=== PATIENT | male | born 1950 | race Caucasian/White ===

== ENCOUNTER 2022-04-22 13:24 | Outpatient (CLI) | payer BC, SELFPAY ==
--- NOTE | ~2022-04-22 | XR_ITS ---
XR abdomen/kub 1V DATE: 04/22/2022 13:41 INDICATION: History of kidney stone TECHNIQUE: AP projection, 2 views COMPARISON: None FINDINGS: Approximately 8.4 x 12 mm calcification overlies the right kidney. There is a small faint c alcification overlying the lower pole of the left kidney. No calcifications are noted overlying the e xpected course of the ureters. Prominent calcifications overlie the prostate gland. The psoas shadows are intact. No visceromegaly is detected. There is a prominent amount of fecal mate rial within the colon but no evidence of bowel obstruction. IMPRESSION: Suspected bilateral nephrolithiasis Prominent prostate calcifications Prominent amount of fecal material in the colon Reviewed, dictated and finalized at Location [facility]. Reviewed, dictated and finalized at location A. ETING FINANCE SPECIALIST
--- NOTE | ~2022-04-22 | CT_ITS ---
EXAMINATION: CT abdomen pelvis wo con DATE: 04/22/2022 13:47 INDICATION: History of kidney stones TECHNIQUE: Computed tomography (CT) of the abdomen and pelvis was performed without intravenous contr ast. Automated exposure control and iterative reconstruction technique were employed. Exam dose: 209 .89 mGy-cm total exam DLP. COMPARISON: None. FINDINGS: The lung bases are clear. Normal heart size. No pericardial or pleural effusion. The liver, gallbladder, bile ducts, spleen, pancreas and pancreatic duct as well as adrenal glands ar e unremarkable. No renal space-occupying mass lesion is evident on this limited noncontrast examination. Up to 7.8 x 13.5 x 9.5 mm nonobstructing lower pole right renal calculus with attenuation 1387 Hounsf ield units. Suggestion of a subtle pinpoint nonobstructing lower pole right renal calculus. Approximately 3 x 4 mm nonobstructing lower pole left renal calculus. No ureteral calculus or hydroureteronephrosis. Normal caliber of the abdominal aorta. No intraperitoneal or retroperitoneal or pelvic mass lesion or adenopathy or ascites. There is prostate enlargement and some prominent prostate calcification. There is moderate diffuse th ickening of the urinary bladder wall. Normal appendix. Mild colonic diverticulosis; no CT evidence of diverticulitis. No bowel obstruction, bowel wall thick ening, pneumatosis or intraperitoneal free air. No suspicious osteolytic or osteoblastic lesions. There is degenerative changes apophyseal joints of the lumbar spine with associated grade 1 anterolis thesis at L3-4. There is severe degenerative disc disease at L4-5 and L5-S1. IMPRESSION: Bilateral nonobstructive nephrolithiasis Normal appendix Mild colonic diverticulosis; no evidence of diverticulitis Reviewed, dictated and finalized at [facility]. Reviewed, dictated and finalized at location A. ETED SPRING ASSEMBLER
== END 2022-04-22 13:25 | disposition home or self-care (01) ==
LOC: ANHIMG 13:26
PROVIDERS: PCP Family Medicine; Visit Provider Nurse Practitioner Adult Health
DX: N20.0 Calculus of kidney (principal); K57.30 Diverticulosis of large intestine without perforation or abscess without bleeding; N40.1 Benign prostatic hyperplasia with lower urinary tract symptoms
CPT/HCPCS: 74018; 74176

== ENCOUNTER 2022-06-07 10:49 | Outpatient (CLI) | payer BC, SELFPAY ==
[2022-06-07 12:13] LABS: Partial Thromboplastin Time 27.8 SECONDS (22.3-36.8); Prothrombin Time 12.8 Seconds (11.1-14.7)
== END 2022-06-07 10:50 | disposition home or self-care (01) ==
LOC: ANHSURGERY 10:50
PROVIDERS: PCP Family Medicine; Visit Provider Urology
DX: Z01.818 Encounter for other preprocedural examination (principal); N20.0 Calculus of kidney
CPT/HCPCS: 36415; 85610; 85730; 87086

== ENCOUNTER 2022-06-10 01:12 | Day surgery (SDC) | payer BC, SELFPAY ==
--- NOTE | 2022-05-16 08:59 | PC.NURSE ---
Report to the Outpatient Waiting Room, entrance under the green pavilion located off [facility], at time __30 on date __05/27/22 . Planned Procedure Time: __929 . Time changes happen often and if your time is changed the preop area will call you the afternoon before. - You and your visitor will be asked to self-screen and do not enter if you have any COVID symptoms. - Only one visitor is requested with a max of two and NO children visitors are allowed at this time. - The patient visitor may be requested to leave or wait in car when not with patient due to distancing restrictions. - A mask is optional within the hospital. Patients may have clear liquids (water, carbonated beverages, clear teas, apple juice) until 3 hours prior to surgery with a maximum of 20 ounces. - No food from midnight until time of surgery - Infants may have breast milk until 4 hours before surgery, infant formula 6 hours prior to surgery. - Children will be allowed to drink immediately following surgery. If applicable, please bring a bottle or sippy cup to assist with drinking. Juice, water, soda, and popsicles are readily available. For infants on formula, please bring formula the day of surgery. Pacifiers are allowed. Take the following medications with a SIP of water the morning of surgery: __NONE Medications to discontinue per physician ALL VITAMINS AND SUPPLEMENTS 3 DAYS PRE OP Date to take last dose 05/23/22 Please no make-up, nail hebrew, hairspray, perfume, deodorant, or body powder the day of surgery. No jewelry (including any body piercings) or valuables the day of surgery, leave them at home. Please take a shower or bath the night before, or the morning of, surgery with an antibacterial soap. Wear comfortable, loose fitting clothing. Children are encouraged to wear pajamas. - Jewelry must be removed prior to entering the operating room. Rings and piercings that are not removed may be cut off. - The hospital will not accept responsibility for valuables. - Please leave all valuables, including medications, at home the day of surgery. If you are going home after surgery, a licensed cdl team truck driver must drive you home. - NO public transportation without another adult if you receive anesthesia. - We recommend that an adult stay with you for 24 hours following discharge. - We also recommend that you do not drive, make important decision, drink alcoholic beverages, or take any drugs that were not prescribed by your health care provider for at least 24 hours after your discharge time. Follow any additional instructions given to you from your surgeon. If you or anyone in your household have experienced Covid symptoms in the past week, please notify your surgeon or the nurse liaison at the phone number below for possible testing. Telephone instructions given to __PATIENT and asked if any additional questions and then verbalized understanding. Patient advised to call surgeon office or pre surgery nurse liaison [phone] if any additional questions.
[2022-05-16 09:10] VITALS: BMI 26.6
--- NOTE | 2022-05-22 08:11 | P.HP_ITS ---
History of Present Illness History of Present Illness Consent: Risks, benefits, and alternatives have been discussed and questions answered. Patient agrees to proceed with procedure. Chief complaint: right kidney stones Narrative: Capo Turner is a 72 year old male who, during the course of evaluation for hematuria, was found to have bilateral renal calculi. The stones are much larger on the left measuring up to 7 x 13 mm. After discussion of options he elected for right ESWL. Patient is aware of the risk including, but not limited to, adverse cardiopulmonary events, need for additional procedures, postoperative hematuria and injury to the kidney with perinephric hematoma. Review of Systems Cardiovascular: Cardiovascular: Denies chest pain, Denies lightheadedness, Denies palpitations and Denies dyspnea Respiratory: Respiratory: Denies dyspnea Gastrointestinal: Gastrointestinal: Denies diarrhea, Denies nausea and Denies vomiting Genitourinary: Genitourinary: Denies hematuria and Denies dysuria Endocrine: Endocrine: Denies palpitations PMFSH Social History Social History Smoking status: Never smoker Spiritual care concerns: No Meds Home Medications and Allergies Home Medications Medication Instructions Recorded Confirmed Type cetirizine 10 mg capsule (Zyrtec) 10 mg PO DAILY PRN Allergy Symptoms 10/29/20 05/16/22 History fluticasone propionate 50 1 spray intranasal PRN PRN Allergy 10/29/20 05/16/22 History mcg/actuation nasal Symptoms spray,suspension cholecalciferol (vitamin D3) 25 25 mcg PO DAILY 05/16/22 05/16/22 History mcg (1,000 unit) tablet ceoovlxe-ery-fwosu acid 500 1 tablet PO DAILY 05/16/22 05/16/22 History mcg-lycopene 300 mcg-lutein 250 mcg tablet omeprazole 40 mg capsule,delayed 40 mg PO BID 05/16/22 05/16/22 History release psyllium husk 3.4 gram/5.4 gram 1 tbsp PO DAILY 05/16/22 05/16/22 History oral powder (Metamucil) tamsulosin 0.4 mg capsule 0.4 mg PO HS 05/16/22 05/16/22 History Allergies Allergy/AdvReac Type Severity Reaction Status Date / Time No Known Allergies Allergy Unverified 05/16/22 08:44 Exam Const: General: no acute distress Resp: Effort & Inspection: normal respiratory effort GI: Inspection: non-distended GI Palp: No abdominal tenderness and No Guarding due to palpation present (GI) Auscultation: normal bowel sounds Assessment and Plan Assessment and plan (1) Bilateral kidney stones: Code(s): N20.0 - Calculus of kidney Status: Acute Assessment and Plan: * Right ESWL
--- NOTE | 2022-05-30 09:38 | PC.NURSE ---
Report to the Outpatient Waiting Room, entrance under the green pavilion located off [address], at time _0700 on date __06/10/22 . Planned Procedure Time: __0900 . Time changes happen often and if your time is changed the preop area will call you the afternoon before. - You and your visitor will be asked to self-screen and do not enter if you have any COVID symptoms. - Only one visitor is requested with a max of two and NO children visitors are allowed at this time. - The patient visitor may be requested to leave or wait in car when not with patient due to distancing restrictions. - A mask is optional within the hospital. Patients may have clear liquids (water, carbonated beverages, clear teas, apple juice) until 3 hours prior to surgery with a maximum of 20 ounces. - No food from midnight until time of surgery - Infants may have breast milk until 4 hours before surgery, formula 6 hours prior to surgery. - Children will be allowed to drink immediately following surgery. If applicable, please bring a bottle or sippy cup to assist with drinking. Juice, water, soda, and popsicles are readily available. For infants on formula, please bring formula the day of surgery. Pacifiers are allowed. Take the following medications with a SIP of water the morning of surgery: __NONE Medications to discontinue per physician ____ALL VITAMINS AND SUPPLEMENTS 3 DAYS PRE OP Date to take last dose___06/06/22 Please no make-up, nail armenian, hairspray, perfume, deodorant, or body powder the day of surgery. No jewelry (including any body piercings) or valuables the day of surgery, leave them at home. Please take a shower or bath the night before, or the morning of, surgery with an antibacterial soap. Wear comfortable, loose fitting clothing. Children are encouraged to wear pajamas. - Jewelry must be removed prior to entering the operating room. Rings and piercings that are not removed may be cut off. - The hospital will not accept responsibility for valuables. - Please leave all valuables, including medications, at home the day of surgery. If you are going home after surgery, a licensed mobile lounge driver or operator must drive you home. - NO public transportation without another adult if you receive anesthesia. - We recommend that an adult stay with you for 24 hours following discharge. - We also recommend that you do not drive, make important decision, drink alcoholic beverages, or take any drugs that were not prescribed by your health care provider for at least 24 hours after your discharge time. For Pediatric surgeries, we recommend two adults accompany the child home. Follow any additional instructions given to you from your surgeon. If you or anyone in your household have experienced Covid symptoms in the past week, please notify your surgeon or the nurse liaison at the phone number below for possible testing. Telephone instructions given to _PATIENT and asked if any additional questions and then verbalized understanding. Patient advised to call surgeon office or pre surgery nurse liaison [phone] if any additional questions.
--- NOTE | 2022-05-30 09:46 | PC.NURSE ---
SPOKE TO PT 05/30/22.TESTED COVID POSITIVE AGAIN 05/24/22. CONGESTION REMAINS .NO OTHER SYMPTOMS.WILL PROCEED WITH SURGERY 06/10/22.NO OTHER CHANGE IN HEALTH HX
--- NOTE | 2022-06-02 12:42 | P.HP_ITS ---
History of Present Illness History of Present Illness Consent: Risks, benefits, and alternatives have been discussed and questions answered. Patient agrees to proceed with procedure. Chief complaint: right kidney stones Narrative: Capo Turner is a 72 year old male recently underwent evaluation for microscopic hematuria. CT imaging demonstrated bilateral renal calculi, greater on the right than left. After discussion of options he elected for right ESWL. He is aware the risk including, but not limited to, adverse cardiopulmonary events, persistent stone with need for additional procedures, hematuria and perinephric hematoma. Review of Systems Cardiovascular: Cardiovascular: Denies chest pain, Denies lightheadedness, Denies palpitations and Denies dyspnea Respiratory: Respiratory: Denies dyspnea Gastrointestinal: Gastrointestinal: Denies diarrhea, Denies nausea and Denies vomiting Genitourinary: Genitourinary: Denies hematuria and Denies dysuria Endocrine: Endocrine: Denies palpitations PMFSH Social History Social History Smoking status: Never smoker Spiritual care concerns: No Meds Home Medications and Allergies Home Medications Medication Instructions Recorded Confirmed Type cetirizine 10 mg capsule (Zyrtec) 10 mg PO DAILY PRN Allergy Symptoms 10/29/20 05/30/22 History fluticasone propionate 50 1 spray intranasal PRN PRN Allergy 10/29/20 05/30/22 History mcg/actuation nasal Symptoms spray,suspension cholecalciferol (vitamin D3) 25 25 mcg PO DAILY 05/16/22 05/30/22 History mcg (1,000 unit) tablet iwsfoewc-xwb-rxdms acid 500 1 tablet PO DAILY 05/16/22 05/30/22 History mcg-lycopene 300 mcg-lutein 250 mcg tablet omeprazole 40 mg capsule,delayed 40 mg PO BID 05/16/22 05/30/22 History release psyllium husk 3.4 gram/5.4 gram 1 tbsp PO DAILY 05/16/22 05/30/22 History oral powder (Metamucil) tamsulosin 0.4 mg capsule 0.4 mg PO HS 05/16/22 05/30/22 History Allergies Allergy/AdvReac Type Severity Reaction Status Date / Time No Known Allergies Allergy Unverified 05/30/22 09:36 Exam Const: General: no acute distress Resp: Effort & Inspection: normal respiratory effort GI: Inspection: non-distended GI Palp: No abdominal tenderness and No Guarding due to palpation present (GI) Auscultation: normal bowel sounds Assessment and Plan Assessment and plan (1) Bilateral kidney stones: Code(s): N20.0 - Calculus of kidney Status: Acute Assessment and Plan: * Right ESWL
--- NOTE | ~2022-06-10 | XR_ITS ---
Supine and upright views of the abdomen Clinical history: Lithotripsy COMPARISON: 04/22/2022 Findings: Bowel gas pattern is nonspecific. No evidence for obstruction or free air. Right lower pole renal stone measures 1.5 cm in diameter. Small left lower pole renal stone measures approximately 3 mm in diameter. Osseous structures are intact. Impression: 1.5 cm right lower pole renal stone. 3 mm left lower pole renal stone. Reviewed, dictated and finalized at location . ATOR AND TRUCK DRIVER Impression: 1.5 cm right lower pole renal stone. 3 mm left lower pole renal stone.
--- NOTE | 2022-06-10 06:42 | WPDHPUPDATE1 ---
History and Physical Update Update Date/Time: 06/10/22 06:42 History and Physical has been reviewed, including an updated exam of the patient. There are NO changes in the patient's condition. Risks, benefits, and alternatives have been discussed and questions answered. Patient agrees to proceed with procedure.
--- NOTE | 2022-06-10 07:38 | WPDANESEPPF ---
Anes - Initial Pre Proc Eval Procedure: Operation Date: 06/10/22 09:00 Proposed Procedures p Right Extracorporeal Shock Wave Lithotripsy - Franco Buck MD Date/Time: 06/10/22 07:38 Surgeon: Franco Buck MD Pre Op Diagnosis: right kidney stones Patient Data Age: 72 Gender: M Height: 1.7 m Weight: 77.15 kg Allergies Allergy/AdvReac Type Severity Reaction Status Date / Time No Known Allergies Allergy Unverified 05/30/22 09:36 Home Medications Medication Instructions Recorded Confirmed Type cetirizine 10 mg capsule (Zyrtec) 10 mg PO DAILY PRN Allergy Symptoms 10/29/20 05/30/22 History fluticasone propionate 50 1 spray intranasal PRN PRN Allergy 10/29/20 05/30/22 History mcg/actuation nasal Symptoms spray,suspension cholecalciferol (vitamin D3) 25 25 mcg PO DAILY 05/16/22 05/30/22 History mcg (1,000 unit) tablet pfgkifen-hhc-crbbp acid 500 1 tablet PO DAILY 05/16/22 05/30/22 History mcg-lycopene 300 mcg-lutein 250 mcg tablet omeprazole 40 mg capsule,delayed 40 mg PO BID 05/16/22 05/30/22 History release psyllium husk 3.4 gram/5.4 gram 1 tbsp PO DAILY 05/16/22 05/30/22 History oral powder (Metamucil) tamsulosin 0.4 mg capsule 0.4 mg PO HS 05/16/22 05/30/22 History Patient hx anesthesia problems: none Family hx anesthesia problems: none Results Review: All pre-operative results and documents have been reviewed as part of the pre-operative evaluation. [facility] Social History Social History Smoking status: Never smoker Living arrangements: with friend(s) Spiritual care concerns: No Anes - Eval Final PreProcedure Day of Procedure 06/10/22 07:38 Patient weight: overweight Heart: regular rate and rhythm Lungs: clear to auscultation Airway: Mallampati scale Neurological: alert and oriented Last oral intake: >/= 8 hours ASA classification: II Emergent: no Anesthetic plan: proceed Anesthesia type and monitoring: general LMA and standard monitoring Results Review: All pre-operative results and documents have been reviewed as part of the pre-operative evaluation. Informed Consent: The patient's anesthetic plan and its attendant risks and benefits were discussed with the patient/family/POA. Questions were solicited and answers provided to the satisfaction of the patient/family/POA.
[2022-06-10 07:49] VITALS: BP 130/84; PULSE 74; RESP 14; TEMP 36.8; O2SAT 100
[2022-06-10] MEDS: SCOPOLAMINE 1.5 MG PATCH TRANSDERM (07:54)
[2022-06-10] MEDS: LACTATED RINGERS 1,000 ML 30 ML IV CONT (07:54)
[2022-06-10] MEDS: ceFAZolin 2 GM/D5W 50 ML 2 GM/50 ML BAG IVPB (08:23)
[2022-06-10 09:03] VITALS: BP 118/78; PULSE 64; RESP 14; O2SAT 98
[2022-06-10 09:18] VITALS: BP 140/85; PULSE 63; RESP 14; O2SAT 100
--- NOTE | 2022-06-10 09:25 | W.PM.PROC2 ---
Procedure Note - Detailed Date of Procedure 06/10/22 Pre-op Diagnosis Right kidney stones Post-op Diagnosis Same Procedure Performed Surgeon Franco Buck MD Anesthesia General Description of Procedure The patient was brought to the operative suite where he was placed in the supine position on the Dornier lithotripsy table. The focal point of the lithotripter was placed at a 11mm right lower calyceal calculus. A total of 2500 shocks were delivered at a power setting of 4. There appeared to be good fragmentation of the stone. The patient tolerated the procedure well and was taken to the recovery room in good condition. Drains Yes Packing No Pathology Yes Complications No immediate complications Condition Stable Disposition PACU
[2022-06-10 09:33] VITALS: BP 124/88; PULSE 67; RESP 16; O2SAT 100
[2022-06-10 09:35] VITALS: BP 144/81; PULSE 69; RESP 16
[2022-06-10] MEDS: ONDANSETRON INJ 4 MG/2 ML VIAL IV PUSH (10:01)
[2022-06-10 10:05] VITALS: BP 142/93; PULSE 74; RESP 16
== END 2022-06-10 10:39 | disposition home or self-care (01) ==
PROVIDERS: PCP Family Medicine; Visit Provider Urology
PROC: (CPT 50590; principal; 2022-06-10 09:00)
DX: N20.0 Calculus of kidney (principal)
CPT/HCPCS: 50590; 74018; A9270; J0690; J1100; J2405; J2704; J3010; J7120

== ENCOUNTER 2022-06-16 11:24 | Emergency (ER) | payer BC, SELFPAY ==
[2022-06-16 11:29] VITALS: BP 177/79; PULSE 81; RESP 16; O2SAT 100
[2022-06-16 12:06] LABS: Add Urine Microscopic? YES; Appearance Urine Cloudy (Clear); Basophils Percent Auto 0.5 % (0.2-1.2); Bilirubin Urine Negative (Negative); Blood Urine 3+ (Negative); Color Urine Yellow (Yellow); Eosinophils Percent Auto 0.5 % (0-4.4); Glucose Urine UA Negative (Negative); Hematocrit 44.4 % (42.0-52.0); Hemoglobin 14.6 g/dL (14.0-18.0); Immature Granulocyte Absolute 0.07 K/mm3 (0.00-0.031); Immature Granulocyte Percent A 1.1 % (0-0.5); Ketones Urine Negative (Negative); Leukocyte Esterase Ur Negative LEU/UL (Negative); Lymphocytes Absolute Auto 1.48 K/mm3 (0.9-3.2); Lymphocytes Percent Auto 22.7 % (18.3-44.2); Mean Corpuscular HGB Conc 32.9 g/dl (32-36); Mean Corpuscular Hemoglobin 30.9 pg (26-34); Mean Corpuscular Volume 94.1 fl (80-100); Mean Platelet Volume 8.6 fl (7.4-10.4); Monocytes Absolute Auto 0.5 K/mm3 (0.1-0.6); Monocytes Percent Auto 7.7 % (2.6-8.5); Neutrophils Absolute Auto 4.4 K/mm3 (1.3-6.7); Neutrophils Percent Auto 67.5 % (45.5-73.1); Nitrate Urine Negative (Negative); Platelet Count Result 283 k/mm3 (150-375); Protein Urine Trace mg/dL (Negative); Red Blood Count 4.72 M/mm3 (4.6-6.20); Red Cell Distribution Width 12.8 % (11.5-14.5); Specific Grav Ur 1.025 (1.001-1.035); Urobilinogen Urine 0.2 mg/dL (<2.0); White Blood Count 6.5 K/mm3 (4.5-10.0)
[2022-06-16 12:10] LABS: Mucus Urine Rare /lpf; RBC Urine >75 /hpf (0-2); Squamous Epithelial Cell Urine Rare /hpf (Few); WBC Urine 21-30 /hpf
[2022-06-16 12:18] LABS: Alanine Aminotransferase 22 U/L (6-50); Albumin Level 4.5 g/dL (3.5-5.1); Alkaline Phosphatase 63 U/L (38-126); Anion Gap 7 mmol/L (8-16); Aspartate Amino Transferase 24 U/L (17-59); Bilirubin,Total 0.3 mg/dL (0.2-1.3); Blood Urea Nitrogen 21 mg/dL (9-20); Calcium 8.8 mg/dL (8.4-10.2); Carbon Dioxide 27 mmol/L (22-30); Chloride 97 mmol/L (98-107); Estimated CRCL calculation 69 ml/min; Estimated Glomerular Filt Rate > 60; Glucose 137 mg/dL (65-110); Lipase 17 U/L (23-300); Potassium 4.1 mmol/L (3.4-5.0); Sodium 131 mmol/L (137-145)
--- NOTE | 2022-06-16 14:36 | PC.NURSE ---
Patient states he is leaving and is going to follow up with his urologist at 1500 today. Patient ambulated out of ED with a steady gait and with all belongings.
== END 2022-06-16 14:36 | disposition left against medical advice (07) ==
PROVIDERS: Emergency Provider Emergency Medicine; PCP Family Medicine
DX: R10.9 Unspecified abdominal pain (principal)
CPT/HCPCS: 36415; 80053; 81001; 83690; 85025; 87086; 99199

== ENCOUNTER 2022-06-20 15:48 | Outpatient (CLI) | payer BC, SELFPAY ==
--- NOTE | ~2022-06-20 | US_ITS ---
EXAMINATION: US renal BI DATE: 06/20/2022 16:22 INDICATION: History of kidney stones TECHNIQUE: Multiple grayscale and Doppler ultrasound images of the kidneys were obtained. COMPARISON: CT, 04/22/2022 FINDINGS: The right kidney measures 11.0 x 5.7 x 6.0 cm. The left kidney measures 11.4 x 5.8 x 7.1 cm . The kidneys demonstrate normal parenchymal echogenicity. No renal stones are identified. There is n o hydronephrosis. The bladder is normal. IMPRESSION: 1. Normal kidneys without hydronephrosis. No nephrolithiasis identified. Reviewed, dictated and finalized at location L. MOTIVE INSPECTOR
== END 2022-06-20 15:49 | disposition home or self-care (01) ==
PROVIDERS: PCP Family Medicine; Visit Provider Nurse Practitioner Adult Health
DX: Z87.442 Personal history of urinary calculi (principal)
CPT/HCPCS: 76775

== ENCOUNTER 2022-07-18 15:08 | Outpatient (CLI) | payer BC, SELFPAY ==
--- NOTE | ~2022-07-18 | XR_ITS ---
EXAMINATION: XR lumbar spine 2-3V DATE: 07/18/2022 15:32 INDICATION: Lumbar radiculopathy TECHNIQUE: Anteroposterior and lateral views of the lumbar spine, and cone-down lateral view of the l umbosacral junction were obtained. COMPARISON: None. FINDINGS: There are 3 mm of anterolisthesis of L3 on L4. Vertebral body alignment is otherwise normal . There is moderate to severe loss of intervertebral disc space height at L4-5 and L5-S1 and mild los s of intervertebral disc space height throughout the remainder of the lumbar spine. The vertebral bod y heights are maintained. Small degenerative osteophytes project from the anterior endplates of multi ple vertebral bodies. There is moderate to severe facet joint osteoarthritis of the lower lumbar spin e. IMPRESSION: 1. Severe lower lumbar spondylosis without acute findings. Reviewed, dictated and finalized at location B. ATION MARBLE MECHANIC
--- NOTE | ~2022-07-18 | US_ITS ---
EXAMINATION: US scrotum doppler DATE: 07/18/2022 15:53 INDICATION: Disorder of minimal gentle organs . Soreness/mild discomfort at the left hemiscrotum. TECHNIQUE: Testicular sonogram utilizing grayscale and Doppler COMPARISON: None. FINDINGS: The right testis measures 5.6 x 2.6 x 3.5 cm. The left testis measures 6.0 x 3.3 x 3.6 cm. Symmetric normal grayscale appearance to both testes. There is normal vascular flow to both testes. The right e pididymis is normal with normal vascular flow. 7 mm anechoic cyst in the left epididymal head. The le ft epididymis is otherwise normal with normal vascular flow. There is no varicocele or hydrocele. IMPRESSION: 1. 7 mm left epididymal head cyst. Otherwise normal scrotal ultrasound. Reviewed, dictated and finalized at location A. STED AIRCREW/AERIAL OBSERVER/GUNNER
== END 2022-07-18 15:09 | disposition home or self-care (01) ==
PROVIDERS: PCP Family Medicine; Visit Provider Family Medicine
DX: N50.3 Cyst of epididymis (principal); M47.26 Other spondylosis with radiculopathy, lumbar region
CPT/HCPCS: 72100; 76870; 93976

== ENCOUNTER 2024-04-08 11:40 | Outpatient (CLI) | payer BC, SELFPAY ==
--- NOTE | ~2024-04-08 | XR_ITS ---
EXAMINATION: XR abdomen/kub 1V DATE: 04/08/2024 11:57 INDICATION: Benign nodular prostatic hypertrophy. TECHNIQUE: A supine view of the abdomen on 2 radiographs was obtained. COMPARISON: CT abdomen and pelvis 04/22/2022 FINDINGS: There are no dilated loops of bowel. There is a small volume of stool in the colon. There i s a 5 mm stone in left kidney. There are calcifications in the prostate. IMPRESSION: 1. Normal bowel gas pattern. 2. 5 mm left kidney stone. Reviewed, dictated and finalized at location B.
== END 2024-04-08 11:41 | disposition home or self-care (01) ==
PROVIDERS: PCP Family Medicine; Visit Provider Urology
DX: N40.1 Benign prostatic hyperplasia with lower urinary tract symptoms (principal); N20.0 Calculus of kidney
CPT/HCPCS: 74018

== ENCOUNTER 2024-04-22 11:45 | Outpatient (CLI) | payer BC, SELFPAY ==
[2024-04-22 12:33] LABS: Partial Thromboplastin Time 24.3 Seconds (22.3-36.8)
== END 2024-04-22 11:46 | disposition home or self-care (01) ==
PROVIDERS: PCP Family Medicine; Visit Provider Urology
DX: N20.0 Calculus of kidney (principal); Z01.818 Encounter for other preprocedural examination
CPT/HCPCS: 36415; 85610; 85730; 87086

== ENCOUNTER 2024-04-26 05:07 | Day surgery (SDC) | payer BC, SELFPAY ==
[2024-04-22 10:13] VITALS: BMI 26.2
--- NOTE | 2024-04-22 10:40 | PC.NURSE ---
Report to the Outpatient Waiting Room, entrance under the green pavilion located off [facility], at time ___8:00AM____ on date ___04/26/24____. Planned Procedure Time: ___10:00AM .? Time changes happen often and if your time is changed the preop area will call you the afternoon before. - You and your visitor will be asked to self-screen and do not enter if you have any COVID symptoms. Please call surgeon if you need to reschedule. - A mask is optional within the hospital at this time. Patients may have clear liquids (water, carbonated beverages, clear teas, apple juice)until 3 hours prior to surgery with a maximum of 20 ounces. - No food from midnight until time of surgery and no smoking. Take only the following medications with a SIP of water on the morning of surgery: NONE DO NOT STOP ANY OF YOUR OTHER PRESCRIPTION MEDICATIONS PRIOR TO SURGERY EXCEPT THE FOLLOWING Medications to discontinue per physician ____HOLD ALL VITAMINS/SUPPLEMENTS 7 DAYS PRE-OP PER DR CACERES Date to take last dose 04/18/24 Please no make-up, nail slovenian, hairspray, perfume, deodorant, or body powder the day of surgery.? No jewelry (including any body piercings) or valuables the day of surgery, leave them at home.? Please take a shower or bath the night before, or the morning of, surgery with an antibacterial soap.? Wear comfortable, loose fitting clothing.? - Jewelry must be removed prior to entering the operating room.? Rings and piercings that are not removed may be cut off. - The hospital will not accept responsibility for valuables.? - Please leave all valuables, including medications, at home the day of surgery. If you are going home after surgery, a licensed truck driver teamster must drive you home.? - NO public transportation without another adult if you receive anesthesia. - We recommend that an adult stay with you for 24 hours following discharge. - We also recommend that you do not drive, make important decision, drink alcoholic beverages, or take any drugs that were not prescribed by your health care provider for at least 24 hours after your discharge time. Follow any additional instructions given to you from your surgeon. Telephone instructions given to PATIENT and asked if any additional questions and then verbalized understanding. Patient advised to call surgeon office or pre surgery nurse liaison [phone] if any additional questions.
[2024-04-26] VITALS (7 sets, daily range): BP systolic 124–143; BP diastolic 76–86; PULSE 50–73; RESP 12–17; TEMP 36.2–36.3; O2SAT 100
--- NOTE | ~2024-04-26 | XR_ITS ---
EXAMINATION: XR abdomen/kub 1V DATE: 04/26/2024 08:09 INDICATION: Kidney stone. TECHNIQUE: A supine view of the abdomen on 2 radiographs was obtained. COMPARISON: Abdomen radiographs 04/08/2024, CT abdomen and pelvis 04/22/2022 FINDINGS: There are no dilated loops of bowel. There is a 4 mm stone in left kidney. There is a 3 mm stone in right kidney. IMPRESSION: 1. Bilateral kidney stones. Reviewed, dictated and finalized at location A. OM PROTECTION OFFICER IMPRESSION: 1. Bilateral kidney stones.
--- NOTE | 2024-04-26 06:09 | WPDHPUPDATE1 ---
History and Physical Update Update Date/Time: 04/26/24 06:09 History and Physical has been reviewed, including an updated exam of the patient. There are NO changes in the patient's condition. Risks, benefits, and alternatives have been discussed and questions answered. Patient agrees to proceed with procedure.
[2024-04-26] MEDS: LACTATED RINGERS 1,000 ML 30 ML IV CONT (08:50)
--- NOTE | 2024-04-26 08:52 | WPDANESEPPF ---
Anes - Initial Pre Proc Eval Procedure: Operation Date: 04/26/24 10:00 Proposed Procedures p Left Extracorporeal Shock Wave Lithotripsy - Franco Buck MD Date/Time: 04/26/24 08:52 Surgeon: Franco Buck MD Pre Op Diagnosis: left renal stone Patient Data Age: 74 Gender: M Height: 1.7 m Weight: 76 kg Allergies Allergy/AdvReac Type Severity Reaction Status Date / Time No Known Allergies Allergy Verified 04/26/24 08:25 Home Medications Medication Instructions Recorded Confirmed Type fluticasone propionate 50 1 spray intranasal PRN PRN Allergy 10/29/20 04/26/24 History mcg/actuation nasal Symptoms spray,suspension fbwtsesh-iry-ltmga acid 500 1 tablet PO DAILY 05/16/22 04/26/24 History mcg-lycopene 300 mcg-lutein 250 mcg tablet omeprazole 40 mg capsule,delayed 40 mg PO BID 05/16/22 04/26/24 History release psyllium husk 3.4 gram/5.4 gram 1 tbsp PO DAILY 05/16/22 04/26/24 History oral powder (Metamucil) famotidine 40 mg tablet 40 mg PO DAILY PRN Indigestion 07/27/22 04/22/24 History acetaminophen 500 mg capsule 1,000 mg PO Q6H PRN Pain 04/22/24 04/26/24 History docusate sodium 100 mg capsule 100 mg PO DAILY 04/22/24 04/26/24 History (Stool Softener) Patient hx anesthesia problems: none Family hx anesthesia problems: none Results Review: All pre-operative results and documents have been reviewed as part of the pre-operative evaluation. [facility] Past Medical History Medical History (Updated 04/26/24 @ 08:52 by Ba Butler MD) Bilateral kidney stones Surgical History Surgical History (Updated 04/26/24 @ 08:53 by Ba Butler MD) H/O lithotripsy H/O melanoma excision Social History Social History Smoking status: Never smoker Alcohol intake: current Living arrangements: with family Additional living arrangements comments: EX- Spiritual care concerns: No Anes - Eval Final PreProcedure Day of Procedure 04/26/24 08:52 Patient weight: overweight Heart: regular rate and rhythm Lungs: clear to auscultation Airway: Mallampati scale class II Neurological: alert and oriented Last oral intake: >/= 8 hours ASA classification: II Emergent: no Anesthetic plan: proceed Anesthesia type and monitoring: general LMA and standard monitoring Results Review: All pre-operative results and documents have been reviewed as part of the pre-operative evaluation. Informed Consent: The patient's anesthetic plan and its attendant risks and benefits were discussed with the patient/family/POA. Questions were solicited and answers provided to the satisfaction of the patient/family/POA.
[2024-04-26] MEDS: ceFAZolin 2 GM/D5W 50 ML 2 GM/50 ML BAG IVPB (09:23)
--- NOTE | 2024-04-26 10:01 | W.PM.PROC2 ---
Procedure Note - Detailed Date of Procedure 04/26/24 Pre-op Diagnosis Left renal stone Post-op Diagnosis Same Procedure Performed Left ESWL Surgeon Franco Buck MD Anesthesia General Description of Procedure The patient was brought to the operative suite where he was placed in the supine position on the Dornier lithotripsy table. The focal point of the lithotripter was placed at a 5mm left lower pole calculus. A total of 2500 shocks were delivered at a power setting of 4. Stone did not appear to fracture early in the procedure so he opted not to turned any shocks on a very tiny 1-2 mm stone in an upper pole calyx. Ultimately, there did appeared to be good fragmentation of the stone we treated. The patient tolerated the procedure well and was taken to the recovery room in good condition. Complications No immediate complications
== END 2024-04-26 11:33 | disposition home or self-care (01) ==
PROVIDERS: PCP Family Medicine; Visit Provider Urology
PROC: (CPT 50590; principal; 2024-04-26 10:00)
DX: N20.0 Calculus of kidney (principal)
CPT/HCPCS: 50590; 74018; J0690; J1100; J2405; J2704; J7120

== ENCOUNTER 2024-05-30 15:25 | Outpatient (CLI) | payer BC, SELFPAY ==
--- NOTE | ~2024-05-30 | XR_ITS ---
EXAMINATION: XR abdomen/kub 1V DATE: 05/30/2024 15:40 INDICATION: Calculus of kidney. TECHNIQUE: A supine view of the abdomen on 2 radiographs was obtained. COMPARISON: Abdomen radiographs 04/26/2024 FINDINGS: There are no dilated loops of bowel. There is a moderate volume of stool in the colon. Ther e is a 4 mm stone in left kidney. There is a 3 mm stone in right kidney. IMPRESSION: 1. Bilateral kidney stones. Reviewed, dictated and finalized at location A. E OIL TREATER IMPRESSION: 1. Bilateral kidney stones.
== END 2024-05-30 15:26 | disposition home or self-care (01) ==
PROVIDERS: PCP Family Medicine; Visit Provider Urology
DX: N20.0 Calculus of kidney (principal)
CPT/HCPCS: 74018

== ENCOUNTER 2024-07-26 11:58 | Outpatient (CLI) | payer BC, SELFPAY ==
--- NOTE | ~2024-07-26 | XR_ITS ---
Exam: Abdomen 1V HISTORY: rt renal stone, follow-up COMPARISON: 05/30/2024 TECHNIQUE: Supine images of the abdomen FINDINGS: Bowel gas pattern is non-obstructive. There is no free air or deep sulci. Redemonstration of bilateral renal calculi. These measure 3.3 mm on the right (projecting over the interpolar region) and 4.5 mm on the left (pro jecting over the lower pole). Lung bases are unremarkable. Bones and soft tissues are unremarkable. IMPRESSION: Nonspecific, nonobstructive bowel gas pattern. Reviewed, dictated and finalized at location A. L PRESSER
--- OUTSIDE RECORDS SUMMARY | 2024-07-26 12:04 | XMS_ITS | Encounter Summary ---
Author Organization [facility] Address [facility] [place] [address] Care Team Providers Care Research Hydrologist Name Role Phone Jaxson Almanza MD Primary Care Provider [phone] Encounter Details Date Type Department Care Team (Late st Contact Info) Description 11/17/2018 Abstract SFL CONVERSION [address] [place] [address] , Generic ConversionMD Social History Tobacco Use Types Packs/Day Years Used Date Smoking Tobacco: Never Sex and Gender Information Value Date Recorded Sex Assigned at Not on file Legal Sex Male 9:58 PM CDT Gender Identity Not on file Sexual Orientation Not on file documented as of this encounter Plan of Treatment Not on file documented as of this encounter Visit Diagnoses Not on filedocumented in this encounter Care Teams Research Hydrologist Relationship Specialty Start Date End Date Jaxson Almanza MD [address] [place] [address] PCP - General FAMILY PRACTICE 04/20/18 documented as of this encounter
--- OUTSIDE RECORDS SUMMARY | 2024-07-26 12:04 | XMS_ITS | Clinical Summary ---
Author Organization [facility] Address [facility] [place] [address] Care Team Providers Care Pediatric Np Name Role Phone Jaxson Almanza MD Primary Care Provider [phone] Allergies No known active allergies Medications omeprazole (PRILOSEC) 40 MG capsule Take 1 capsule (40 mg total) by mouth 2 (two) times daily. Active famotidine (PEPCID) 40 MG tablet Take 1 tablet (40 mg total) by mouth 2 (two) times daily. Active Multiple Vitamin (MULTI-VITAMIN) tablet Take 1 tablet by mouth daily. Active Social History Tobacco Use Types Packs/Day Years Used Date Smoking Tobacco: Never Smokeless Tobacco: Never Tobacco Cessation:Counseling Given: Not Answered Alcohol Use Standard Drinks/Week Comments Never 0 (1 standard drink = 0.6 oz pur e alcohol) Sex and Gender Information Value Date Recorded Sex Assigned at Not on file Legal Sex Male 9:58 PM CDT Gender Identity Not on file Sexual Orientation Not on file Last Filed Vital Signs Vital Sign Reading Time Taken Comments Blood Pressure 135/84 07/25/2023 2:47 PM WATCH DIAL STONER Pulse 71 07/25/2023 2:47 PM WATCH DIAL STONER Temperature 36 C (96.8 F) 07/25/2023 2:47 PM WATCH DIAL STONER Respiratory Rate 18 07/25/2023 2:47 PM WATCH DIAL STONER Oxygen Saturation 100% 07/25/2023 2:47 PM WATCH DIAL STONER Inhaled Oxygen Concentration - - Weight 77.1 kg (170 lb) 07/24/2023 10:10 AM WATCH DIAL STONER Height 170.2 cm (5' 7 ) 07/24/2023 10:10 AM WATCH DIAL STONER Body Mass Index 26.63 07/24/2023 10:10 AM WATCH DIAL STONER Plan of Treatment Health Maintenance Due Date Last Done Comments Colorectal Cancer Screening Colonoscopy (10 Years) 1950 Hepatitis C 1968 COVID-19 Vaccine ( season) 2024 04/01/2023, 04/10/2022, 04/03/2021, Additional history exists Influenza Adult (#1) 2024 03/15/2021, 03/21/2019, 03/31/2018, Additional history exists RSV Immunization or 60+ Years (1 - 1-dose 75+ series) 2026 DTaP, Tdap and Td Vaccines (2 - Td or Tdap) 01/02/2029 01/02/2019 Pneumococcal Vaccine: 65+ Years Completed 06/26/2017, 03/23/2016 Zoster Vaccines Completed 07/06/2019, 05/05/2019 Meningococcal B Vaccine Aged Out No l onger eligible based on patient's age to complete this topic Meningococcal Vaccine Aged Out No tash shameka eligible based on patient's age to complete this topic RSV Immunizations Under 20 Months Aged Out No longer eligible based on patient's age to complete this topic Insurance [facility] Care Teams Pediatric Np Relationship Specialty Start Date End Date Jaxson Almanza MD [address] [place] [address] PCP - General FAMILY PRACTICE 04/20/18
== END 2024-07-26 11:59 | disposition home or self-care (01) ==
PROVIDERS: PCP Family Medicine; Visit Provider Urology
DX: N20.0 Calculus of kidney (principal)
CPT/HCPCS: 74018

== ENCOUNTER 2025-04-04 09:54 | Outpatient (CLI) | payer BC, SELFPAY ==
--- NOTE | ~2025-04-04 | XR_ITS ---
XR abdomen/kub 1V 04/04/2025 10:10 Indication: Nephrolithiasis Procedure: KUB Comparison: Comparison to multiple prior studies sequentially, with oldest reviewed study dated 04/08/2024. Findings: There is a cluster of stones in the lower pole of the left kidney bowel gas pattern nonobstructive. Moderate colonic fecal loading. No acute osseous abnormality. Impression: 1: Left nephrolithiasis. Reviewed, dictated and finalized at location O. Impression: 1: Left nephrolithiasis.
--- OUTSIDE RECORDS SUMMARY | 2025-04-04 10:13 | XMS_ITS | Encounter Summary ---
Author Organization [facility] Address [facility] [place] [address] Care Team Providers Care Bung Remover Name Role Phone Jaxson Almanza MD Primary Care Provider [phone] Encounter Details Date Type Department Care Team (Late st Contact Info) Description 11/17/2018 Abstract SFL CONVERSION [address] [place] [address] , Generic ConversionMD Social History Tobacco Use [...] on filedocumented in this encounter Care Teams Bung Remover Relationship Specialty Start Date End Date Jaxson Almanza MD [address] [place] [address] PCP - General FAMILY PRACTICE 04/20/18 documented as of this encounter
--- OUTSIDE RECORDS SUMMARY | 2025-04-04 10:13 | XMS_ITS | Clinical Summary ---
Author Organization [facility] Address [facility] [place] [address] Care Team Providers Care Director Title Name Role Phone Jaxson Almanza MD Primary Care Provider [phone] Allergies No known active allergies Medications omeprazole [...] Comments Blood Pressure 135/84 07/25/2023 2:47 PM LUMBER STRAIGHTENER Pulse 71 07/25/2023 2:47 PM LUMBER STRAIGHTENER Temperature 36 C (96.8 F) 07/25/2023 2:47 PM LUMBER STRAIGHTENER Respiratory Rate 18 07/25/2023 2:47 PM LUMBER STRAIGHTENER Oxygen Saturation 100% 07/25/2023 2:47 PM LUMBER STRAIGHTENER Inhaled Oxygen Concentration - - Weight 77.1 kg (170 lb) 07/24/2023 10:10 AM LUMBER STRAIGHTENER Height 170.2 cm (5' 7) 07/24/2023 10:10 AM LUMBER STRAIGHTENER Body Mass Index 26.63 07/24/2023 10:10 AM LUMBER STRAIGHTENER Plan of Treatment Health Maintenance Due Date Last Done Comments Colorectal Cancer Screening Colonoscopy (10 Years) 1950 Hepatitis C 1969 COVID-19 Vaccine ( season) 2025 04/01/2023, 04/10/2022, 04/03/2021, Additional history exists Influenza Adult (#1) 2025 03/15/2021, 03/21/2019, 03/31/2018, Additional history exists RSV Immunization or 60+ Years (1 - 1-dose 75+ series) 2026 DTaP, Tdap and Td Vaccines (2 - Td or Tdap) 01/02/2029 01/02/2019 Pneumococcal Vaccine: 50+ Years Completed 06/26/2017, 03/23/2016 Zoster Vaccines Completed 07/06/2019, 05/05/2019 Hepatitis A Vaccines Aged Out No long er eligible based on patient's age to complete this topic Meningococcal B Vaccine Aged Out No l onger eligible based on patient's age to complete this topic Meningococcal Vaccine Aged Out No tash shameka eligible based on patient's age to complete this topic RSV Immunizations Under 20 Months Aged Out No longer eligible based on patient's age to complete this topic Insurance [facility] Care Teams Director Title Relationship Specialty Start Date End Date Jaxson Almanza MD [address] [place] [address] PCP - General FAMILY PRACTICE 04/20/18
== END 2025-04-04 09:55 | disposition home or self-care (01) ==
PROVIDERS: PCP Family Medicine; Visit Provider Physician Assistant
DX: N20.0 Calculus of kidney (principal)
CPT/HCPCS: 74018

== ENCOUNTER 2025-05-06 12:35 | Outpatient (CLI) | payer BC, SELFPAY ==
--- NOTE | ~2025-05-06 | XR_ITS ---
EXAMINATION: XR chest 2V, 05/06/2025 12:40 MANAGER IMPLEMENTATION HISTORY: dyspnea COMPARISON: No comparisons available. Technique: 2 views obtained. Findings: The lungs are clear, no effusion. No pneumothorax. Heart is normal size. Mediastinal and hilar contours are within normal limits. Bony thorax no acute abnormality. Impression: No acute cardiopulmonary abnormality. Reviewed, dictated and finalized at location P. GER IMPLEMENTATION Impression: No acute cardiopulmonary abnormality.
--- OUTSIDE RECORDS SUMMARY | 2025-05-06 13:57 | XMS_ITS | Encounter Summary ---
Author Organization [facility] Address [facility] [place] [address] Care Team Providers Care Camera Person Name Role Phone Jaxson Almanza MD Primary Care Provider Encounter Details Date Type Department Care Team (Late st Contact Info) Description 11/17/2018 Abstract SFL CONVERSION [address] [place] [address] , Generic ConversionMD Social History Tobacco Use [...] on filedocumented in this encounter Care Teams Camera Person Relationship Specialty Start Date End Date Jaxson Almanza MD [address] [place] [address] PCP - General FAMILY PRACTICE 04/20/18 documented as of this encounter
--- OUTSIDE RECORDS SUMMARY | 2025-05-06 13:57 | XMS_ITS | Clinical Summary ---
Author Organization [facility] Address [facility] [place] [address] Care Team Providers Care Stunt Man Name Role Phone Jaxson Almanza MD Primary Care Provider [phone] Allergies No known active allergies Medications omeprazole [...] Comments Blood Pressure 135/84 07/25/2023 2:47 PM METAL OR WOOD BLOCKER Pulse 71 07/25/2023 2:47 PM METAL OR WOOD BLOCKER Temperature 36 C (96.8 F) 07/25/2023 2:47 PM METAL OR WOOD BLOCKER Respiratory Rate 18 07/25/2023 2:47 PM METAL OR WOOD BLOCKER Oxygen Saturation 100% 07/25/2023 2:47 PM METAL OR WOOD BLOCKER Inhaled Oxygen Concentration - - Weight 77.1 kg (170 lb) 07/24/2023 10:10 AM METAL OR WOOD BLOCKER Height 170.2 cm (5' 7) 07/24/2023 10:10 AM METAL OR WOOD BLOCKER Body Mass Index 26.63 07/24/2023 10:10 AM METAL OR WOOD BLOCKER Plan of Treatment Health Maintenance Due Date [...] patient's age to complete this topic Insurance [facility] Care Teams Stunt Man Relationship Specialty Start Date End Date Jaxson Almanza MD [address] [place] [address] PCP - General FAMILY PRACTICE 04/20/18
== END 2025-05-06 12:36 | disposition home or self-care (01) ==
LOC: CHSIMG 12:37
PROVIDERS: PCP Family Medicine; Visit Provider Family Medicine
DX: R06.09 Other forms of dyspnea (principal)
CPT/HCPCS: 71046

== ENCOUNTER 2025-05-19 15:56 | Outpatient (CLI) | payer BC, SELFPAY ==
--- NOTE | ~2025-05-19 | CT_ITS ---
EXAMINATION:CT diagnostic chest wo con DATE: 05/19/2025 16:33 INDICATION: Lung nodule TECHNIQUE: Computed tomography (CT) of the chest was performed without intravenous contrast. The dose-length product (DLP) was 174.96 mGy-cm. COMPARISON: None. FINDINGS: Scattered benign-appearing calcified small granulomas with no suspicious nodules or masses. The lungs are clear. Heart and great vessels appear within normal limits for technique. Diffuse degenerative changes throughout the bones which otherwise appear intact. No acute process seen in the visualized portions of the upper abdomen or extrathoracic soft tissues. IMPRESSION: 1. Benign-appearing granulomatous nodules. 2. No suspicious nodules or acute process identified. Reviewed, dictated and finalized at location A. LE SCHOOL LIBRARIAN
== END 2025-05-19 15:57 | disposition home or self-care (01) ==
PROVIDERS: PCP Family Medicine; Visit Provider Family Medicine
DX: R91.8 Other nonspecific abnormal finding of lung field (principal)
CPT/HCPCS: 71250

== ENCOUNTER 2025-05-23 14:58 | Outpatient (CLI) | payer BC, SELFPAY ==
--- NOTE | ~2025-05-23 | XR_ITS ---
EXAM/PROCEDURE: XR abdomen/kub 1V HISTORY: HX OF KIDNEY STONES COMPARISON: April 04, 2025 TECHNIQUE: KUB FINDINGS: Minimal small bowel gas present. At least moderate amount of stool extends to the cecum. 4 x 3 mm calcification overlying the lower pole of the left kidney near present small kidney stone. No large stones seen. Lung bases appear clear. IMPRESSION: Probable 4 x 3 mm lower pole left kidney stone. No other definite kidney stones identified. Reviewed, dictated and finalized at location A. STITCH COAT JOINER
== END 2025-05-23 14:59 | disposition home or self-care (01) ==
PROVIDERS: PCP Family Medicine; Visit Provider Urology
DX: Z87.442 Personal history of urinary calculi (principal)
CPT/HCPCS: 74018